=== PATIENT | male | born 1960 | race Caucasian/White ===

== ENCOUNTER 2023-08-26 09:33 | Emergency (ER) | payer MEDICAID ==
[~2023-08-26] VITALS: Ht 180.3 cm; Wt 122.5 kg
[2023-08-26 09:38] VITALS: BP 146/79; PULSE 83; RESP 14; TEMP 98.6; O2SAT 96
[2023-08-26] MEDS ORDERED: ACET-8905 PO (11:16)
[2023-08-26] MEDS ORDERED: IBUP-2218 PO (11:16)
[2023-08-26 11:30] VITALS: BP 131/84; PULSE 74; RESP 15; TEMP 37.00296; O2SAT 95
== END 2023-08-26 11:30 | disposition home or self-care (01) ==
LOC: MED 09:33
DX: M23.92 Unspecified internal derangement of left knee (principal); M17.12 Unilateral primary osteoarthritis, left knee; I10 Essential (primary) hypertension; Z79.1 Long term (current) use of non-steroidal anti-inflammatories (NSAID)
CPT/HCPCS: 73562; 99283; Q0092